=== PATIENT | female | born 1945 | race Caucasian/White ===

== ENCOUNTER 2022-07-22 11:21 | Outpatient (CLI) | payer MEDICARE, BC ==
[2022-07-22 12:52] LABS: Hemoglobin 12.1 g/dL (12.0-15.5); Mean Corpuscular HGB CONC 32.2 g/dL (32.0-36.0); Mean Corpuscular Hemoglobin 30.6 pg (27.0-33.0); Mean Corpuscular Volume 94.9 fl (81.6-98.3); Mean Platelet Volume 10.1 fl (7.4-10.4); Platelet Count 397 10x3/uL (150-450); Red Blood Cell (RBC) Count 3.96 10x6/uL (3.90-5.03); White Blood Cell (WBC) Count 6.2 10x3/uL (3.5-10.5)
[2022-07-22 13:22] LABS: PTT 28.1 sec (22.0-33.0); Prothrombin Time 10.3 sec (9.5-12.1)
[2022-07-22 13:46] LABS: Anion Gap 14 mmol/L (10-20); BUN (Urea Nitrogen) 16 mg/dL (9.8-20.1); Calc. Creatinine Clearance 0 mL/min (70-130); Calcium 8.7 mg/dL (7.8-10.44); Carbon Dioxide 30 mmol/L (23-31); Chloride 102 mmol/L (98-107); Estimated GFR 81; Glucose 139 mg/dL (83-110); Potassium 3.8 mmol/L (3.5-5.1); Sodium 142 mmol/L (136-145)
== END 2022-07-22 11:22 | disposition home or self-care (01) ==
LOC: LABBT 11:21
PROVIDERS: ATTEND Neurological Surgery
DX: Z01.812 Encounter for preprocedural laboratory examination (principal); M43.10 Spondylolisthesis, site unspecified; M48.02 Spinal stenosis, cervical region
CPT/HCPCS: 80048; 85027; 85610; 85730

== ENCOUNTER 2022-07-22 11:30 | Inpatient (IN) | payer MEDICARE, BC ==
[2022-07-27] MEDS ORDERED: Vancomycin 1 GM VIAL ONE (06:08)
[2022-07-27] MEDS ORDERED: Thrombin 5000 UNITS/5 ML VIAL ONE (06:08)
[2022-07-27] MEDS ORDERED: Fentanyl 250 MCG/5 ML VIAL ONE (06:19)
[2022-07-27] MEDS ORDERED: Sodium Chloride 0.9% 100 ML ONE (06:38)
[2022-07-27] MEDS ORDERED: CEFAZOLIN 2 GM VIAL ONE (06:38)
[2022-07-27] MEDS ORDERED: Acetaminophen 325 MG TAB PO PRN (07:05)
[2022-07-27] MEDS ORDERED: Morphine 2 MG/ML VIAL SLOW IVP PRN (07:05)
[2022-07-27] MEDS ORDERED: Ondansetron PF 4 MG/2 ML Vial IVP PRN (07:05)
[2022-07-27] MEDS ORDERED: Prochlorperazine 10 MG/2 ML VIAL IM PRN (07:05)
[2022-07-27] MEDS ORDERED: HYDROcodone/Acetaminophen 7.5/325 mg Tablet PO PRN (07:05)
[2022-07-27] MEDS ORDERED: Milk Of Magnesia 30 ML UDCUP PO PRN (07:05)
[2022-07-27] MEDS ORDERED: diphenhydrAMINE 50 MG/ML VIAL IVP PRN (07:05)
[2022-07-27] MEDS ORDERED: Mag-Al 1200 mg/1200 mg/30 ML UDCUP PO PRN (07:05)
[2022-07-27] MEDS ORDERED: PROPOFOL 200 MG/20 ML VIAL ONE (07:08)
[2022-07-27] MEDS ORDERED: PHENYLEPHRINE-NS 100 MCG/ML 10 ML SYRINGE ONE (07:08)
[2022-07-27] MEDS ORDERED: Rocuronium Bromide 10 MG/ML (10ML VIAL) ONE (07:08)
[2022-07-27] MEDS ORDERED: ePHEDrine Sulfate 50 MG/10 ML VIAL ONE (07:08)
[2022-07-27] MEDS ORDERED: Lidocaine 1% PF 5 ML VIAL ONE (07:08)
[2022-07-27] MEDS ORDERED: Ondansetron PF 4 MG/2 ML Vial ONE (07:08)
[2022-07-27] MEDS ORDERED: tiZANidine HCl 4 MG TAB PO PRN (07:08)
[2022-07-27] MEDS ORDERED: Vecuronium 10 MG VIAL ONE (07:08)
[2022-07-27] MEDS ORDERED: Dexamethasone 20 MG/5 ML VIAL ONE (07:08)
[2022-07-27] MEDS ORDERED: Glycopyrrolate 0.2 MG/ML 5 ML SYRINGE ONE (07:08)
[2022-07-27] MEDS ORDERED: Phenylephrine 10 MG/ML VIAL ONE (08:51)
[2022-07-27] MEDS ORDERED: Mineral Oil Sterile 10 ML VIAL ONE (10:46)
[2022-07-27] MEDS ORDERED: SUGAMMADEX SODIUM 200 MG/2 ML VIAL ONE (12:22)
[2022-07-27] MEDS ORDERED: Morphine Sulfate 2 MG/ML SYRINGE SLOW IVP PRN (12:49)
[2022-07-27] MEDS ORDERED: PACU-Morphine 4MG/ML VIAL SLOW IVP PRN (12:49)
[2022-07-27] MEDS ORDERED: HYDROmorphone 2 MG/ML VIAL ONE (12:49)
[2022-07-27] MEDS ORDERED: HYDROmorphone 2 MG/ML VIAL SLOW IVP PRN (12:49)
[2022-07-27] MEDS ORDERED: Promethazine HCl 25 MG/ML VIAL IM PRN (12:49)
[2022-07-27] MEDS ORDERED: Ondansetron HCl/PF 4 MG/2 ML Vial IVP PRN (12:49)
[2022-07-27] MEDS ORDERED: HYDROmorphone 0.5 MG/0.5 ML SYRINGE ONE ×2 (13:22→13:37)
[2022-07-27] MEDS ORDERED: fentaNYL 50 mcg/mL 1 mL Vial ONE ×2 (14:18→14:35)
[2022-07-27] MEDS ORDERED: CEFAZOLIN 2 GM in Sodium Chloride 0.9% 100 ML IVPB SCH (15:00)
[2022-07-27] MEDS: Sodium Chloride 0.9% 1,000 ML IV SCH ×2 (18:00→22:06)
[2022-07-27 18:09] VITALS: BMI 27.2
[2022-07-27] MEDS: HYDROcodone/Acetaminophen 10/325 mg Tablet PO PRN ×2 (18:33→23:06)
[2022-07-27] MEDS: Losartan 25 MG TAB PO SCH (20:21)
[2022-07-27] MEDS: CEFAZOLIN 2 GM in Sodium Chloride 0.9% 100 ML IVPB SCH (20:21)
[2022-07-27] MEDS: Isosorbide Dinitrate 20 MG TAB PO SCH (20:21)
[2022-07-27] MEDS ORDERED: Gabapentin 300 MG CAP PO PRN (21:00)
[2022-07-28] MEDS: CEFAZOLIN 2 GM in Sodium Chloride 0.9% 100 ML IVPB SCH (03:51)
[2022-07-28] MEDS: Losartan 25 MG TAB PO SCH ×2 (08:46→20:52)
[2022-07-28] MEDS: Atorvastatin Calcium 40 MG TAB PO SCH (08:46)
[2022-07-28] MEDS: Loratadine 10 MG TAB PO SCH (08:46)
[2022-07-28] MEDS: Isosorbide Dinitrate 20 MG TAB PO SCH ×2 (08:46→20:52)
[2022-07-28] MEDS: DULoxetine 60 MG CAP PO SCH (08:47)
[2022-07-28] MEDS: Amlodipine 10 MG TAB PO SCH (08:47)
[2022-07-28] MEDS: Amiodarone 200 MG TAB PO SCH (08:47)
[2022-07-28] MEDS: Furosemide 40 MG TAB PO SCH (08:47)
[2022-07-28] MEDS: HYDROcodone/Acetaminophen 10/325 mg Tablet PO PRN ×2 (08:48→14:35)
[2022-07-28] MEDS ORDERED: Aspirin 81 mg Enteric Coated Tablet PO SCH (09:00)
[2022-07-28] MEDS ORDERED: Non-Formulary Item 1 EACH (Omeprazole [Omeprazole] 20 MG Tab.Rap.Dr) PO SCH (09:00)
[2022-07-28] MEDS: Acetaminophen/Codeine 30-300mg Tablet PO PRN ×2 (11:00→17:13)
[2022-07-28] MEDS: Sodium Chloride 0.9% 1,000 ML IV SCH ×2 (15:26→20:51)
[2022-07-28] MEDS ORDERED: Cepastat Lozenges 1 LOZ PO PRN (18:20)
[2022-07-28] MEDS ORDERED: Dexamethasone 4 mg/ml Vial SLOW IVP SCH (18:30)
[2022-07-28] MEDS ORDERED: Acetaminophen/Codeine 30-300mg Tablet PO PRN ×3 (22:56→22:59)
[2022-07-28] MEDS ORDERED: HYDROcodone/Acetaminophen 5/325 mg Tablet PO PRN (22:59)
[2022-07-29] MEDS: DULoxetine 60 MG CAP PO SCH (08:18)
[2022-07-29] MEDS: Amlodipine 10 MG TAB PO SCH (08:18)
[2022-07-29] MEDS: Losartan 25 MG TAB PO SCH (08:18)
[2022-07-29] MEDS: Atorvastatin Calcium 40 MG TAB PO SCH (08:19)
[2022-07-29] MEDS: Furosemide 40 MG TAB PO SCH (08:19)
[2022-07-29] MEDS: Amiodarone 200 MG TAB PO SCH (08:19)
[2022-07-29] MEDS: Loratadine 10 MG TAB PO SCH (08:19)
[2022-07-29] MEDS: Isosorbide Dinitrate 20 MG TAB PO SCH (08:19)
[2022-07-29] MEDS: HYDROcodone/Acetaminophen 5/325 mg Tablet PO PRN ×2 (08:32→15:24)
[2022-07-29 09:51] LABS: #Neutrophils 10.9 thou/uL (1.40-6.50); %Basophils 0.1 % (0.0-1.0); %Lymphocytes 5.5 % (21.0-51.0); %Neutrophils 85.8 % (42.0-75.0); Hemoglobin 10.4 g/dL (12.0-16.0); Mean Corpuscular HGB CONC 31.5 g/dL (32.0-36.0); Mean Corpuscular Hemoglobin 30.7 pg (27.0-31.0); Mean Corpuscular Volume 97.3 fl (78.0-98.0); Mean Platelet Volume 10.2 fL (7.4-10.4); Platelet Count 315 10x3/uL (130-400); RBC Distribution Width 17.2 % (11.5-14.5); Red Blood Cell (RBC) Count 3.39 mill/uL (4.20-5.40); White Blood Cell (WBC) Count 12.7 10x3/uL (4.8-10.8)
[2022-07-29 10:10] LABS: Anion Gap 13 mmol/L (10-20); BUN (Urea Nitrogen) 8 mg/dL (9.8-20.1); Calc. Creatinine Clearance 74 mL/min (70-130); Calcium 8.8 mg/dL (7.8-10.44); Carbon Dioxide 30 mmol/L (23-31); Chloride 99 mmol/L (98-107); Estimated GFR 79; Glucose 197 mg/dL (83-110); Potassium 3.6 mmol/L (3.5-5.1); Sodium 138 mmol/L (136-145)
[2022-07-29 11:18] VITALS: BP 160/60; TEMP 98.2
[2022-07-29] MEDS: Sodium Chloride 0.9% 1,000 ML IV SCH (12:43)
== END 2022-07-29 15:50 | disposition home or self-care (01) | DRG 472 ==
LOC: SURG A 07-27 05:37
PROVIDERS: ADMIT Neurological Surgery; ATTEND Neurological Surgery
PROC: 0RG20A0 Fusion of 2 or more Cervical Vertebral Joints with Interbody Fusion Device, Anterior Approach, Anterior Column, Open Approach (ICD-10-PCS; principal; 2022-07-27)
PROC: 0RB30ZZ Excision of Cervical Vertebral Disc, Open Approach (ICD-10-PCS; 2022-07-27)
DX: M48.02 Spinal stenosis, cervical region (principal); I50.32 Chronic diastolic (congestive) heart failure; M47.12 Other spondylosis with myelopathy, cervical region; M50.01 Cervical disc disorder with myelopathy, high cervical region; I11.0 Hypertensive heart disease with heart failure; I48.91 Unspecified atrial fibrillation; E11.9 Type 2 diabetes mellitus without complications; E78.00 Pure hypercholesterolemia, unspecified; Z96.612 Presence of left artificial shoulder joint; Z96.611 Presence of right artificial shoulder joint; E78.5 Hyperlipidemia, unspecified; M81.0 Age-related osteoporosis without current pathological fracture; R33.9 Retention of urine, unspecified; Z98.890 Other specified postprocedural states; Z79.899 Other long term (current) drug therapy; Z79.82 Long term (current) use of aspirin; Z88.1 Allergy status to other antibiotic agents; Z88.2 Allergy status to sulfonamides; Z88.8 Allergy status to other drugs, medicaments and biological substances
CPT/HCPCS: 36415; 80048; 85025; C1713; C1768; J1100; J1170; J2272; J2370; J2405; J2704; J3010; J3370; J3490